=== PATIENT | male | born 1950 | race Caucasian/White ===

== ENCOUNTER → 2023-03-09 | Outpatient (CLI) | payer OTHER ==
--- NOTE | 2023-03-10 15:08 | MR ---
EXAMINATION TYPE: MR lumbar spine wo con DATE OF EXAM: 03/09/2023 COMPARISON: Plain films 01/19/2023 HISTORY: Lower back pain, BLE radiculopathy x 2 yrs. CONTRAST: 0 mL intravenous Gadavist. TECHNIQUE: Multiplanar, multisequence images of the lumbar spine were acquired. FINDINGS: L5-S1: Broad-based disc bulge with subligamentous disc extension as impression into the epidural spac e. No exiting nerve root contact. Contact is evident. No AP spinal canal stenosis. There is severe ri ght and moderate to severe left foraminal stenosis. Correlate with S1 radicular symptoms. L4-L5: Broad-based disc bulge is anterior thecal sac contact. Some central protrusion is mild thecal sac compression. No AP spinal canal stenosis is present. Facet hypertrophy is present with ligamentum flavum laxity. This has posterior lateral thecal sac compression greater on the left. Moderate right and mild left foraminal stenosis is present. L3-L4: No significant disc bulge or disc herniation. No spinal canal stenosis. No foraminal stenosi s. L2-L3: There is increased signal within the endplates compatible with Modic type I degenerative macias es. There is some disc space narrowing present no AP spinal canal stenosis is present. Disc bulging i s present with mild anterior thecal sac contact. Facet hypertrophy with ligamentum flavum laxity is p resent. Mild posterior lateral thecal sac compression is present. Mild left foraminal narrowing is pr esent. L1-L2: No significant disc bulge or disc herniation. No spinal canal stenosis. No foraminal stenosi s. T12-L1: No significant disc bulge or disc herniation. No spinal canal stenosis. No foraminal stenos is. IMPRESSION: 1. Moderate type I degenerative endplate changes L2-L3. 2. Broad-based disc bulge L2-3 with mild anterior thecal sac compression. 3. Facet hypertrophy L4-5 with posterior lateral thecal sac compression. Moderate right and mild lef t foraminal narrowing is present. 4. Broad-based disc bulge without spinal canal stenosis. There is severe right and moderate to severe left foraminal stenosis. Correlate with S1 radicular symptoms.
== END | disposition home or self-care (01) ==
LOC: RADMRIMAIN 12:44
PROVIDERS: ATTEND Orthopaedic Surgery
DX: M99.74 Connective tissue and disc stenosis of intervertebral foramina of sacral region (principal); M47.26 Other spondylosis with radiculopathy, lumbar region; M51.16 Intervertebral disc disorders with radiculopathy, lumbar region
CPT/HCPCS: 72148